=== PATIENT | female | born 1970 | race Caucasian/White ===

== ENCOUNTER 2024-12-27 08:53 | Inpatient (IN) | payer OTHER ==
[2024-12-27 10:25] LABS: BASOPHILS ABSOLUTE AUTO 0.1 K/mm3 (0.0-0.2); BASOPHILS PERCENT AUTO 0.9 % (0.0-1.0); EOSINOPHILS ABSOLUTE AUTO 0.3 K/mm3 (0.0-0.4); EOSINOPHILS PERCENT AUTO 2.3 % (0.0-6.0); HEMATOCRIT 33.4 % (37.0-47.0); HEMOGLOBIN 11.6 gm/dl (12.0-16.0); IMMATURE GRAN ABSOLUTE AUTO 0.94 K/mm3 (0.00-0.05); IMMATURE GRAN PERCENT AUTO 6.7 % (0.0-0.4); LYMPHOCYTES ABSOLUTE AUTO 1.1 K/mm3 (1.0-4.8); LYMPHOCYTES PERCENT AUTO 8.2 % (24.0-44.0); MEAN CORPUSCULAR HEMOGLOBIN 29.7 pg (28.0-32.0); MEAN CORPUSCULAR HGB CONC 34.7 g/dl (32.0-36.0); MEAN CORPUSCULAR VOLUME 85.6 fl (83.0-99.0); MEAN PLATELET VOLUME 10.6 fl (9.4-12.3); MONOCYTES PERCENT AUTO 7.3 % (0.0-8.0); NEUTROPHILS ABSOLUTE AUTO 10.4 K/mm3 (1.8-7.7); NRBC ABSOLUTE 0.02 (0.00-0.02); NRBC PERCENT 0.1 % (0.0-0.2); PLATELET COUNT,PLT 299 K/mm3 (150-400); WHITE BLOOD CELL COUNT,WBC 13.95 K/mm3 (3.9-11.3)
[2024-12-27 10:40] LABS: A/G RATIO 0.5 (1-2); ALBUMIN 2.3 g/dl (3.4-5.0); ANION GAP 14.5 (5-15); BILIRUBIN TOTAL 0.8 mg/dL (0.2-1.0); BUN/CREATININE RATIO 16.4 (14-18); CALCIUM 9.1 mg/dL (8.5-10.1); CREATININE 1.1 mg/dL (0.55-1.02); EST CRCL DRUG DOSING (CG) 49.49 mL/min; POTASSIUM,K 3.5 mEq/L (3.5-5.1); PROTEIN TOTAL,TP 6.6 g/dl (6.4-8.2)
[2024-12-27 11:01] LABS: CORONAVIRUS COVID-19 NAA NEGATIVE (NEGATIVE); INFLUENZA A NAA NEGATIVE (NEGATIVE); RESPIRATORY SYNCYTIAL VIR NAA NEGATIVE (NEGATIVE)
[2024-12-27 11:52] LABS: NEUTROPHILS PERCENT AUTO 74.6 % (41.0-71.0); SLIDE REVIEW ABNORMAL SMEAR
[2024-12-27] MEDS ORDERED: Acetaminophen 325 MG Tab PO PRN (12:20)
[2024-12-27 12:26] LABS: INR 1.07; PROTHROMBIN TIME 11.3 SECONDS (9.7-12.0)
[2024-12-27 12:27] LABS: PTT,PARTIAL THROMBOPLSTIN TIME 24.5 SECONDS (21.7-31.4)
[2024-12-27] MEDS: Sodium Chloride 0.9% 1,000 ML IV ONE (12:33)
[2024-12-27] MEDS: Cefepime 2 GM Vial IVPUSH ONE (12:33)
[2024-12-27] MEDS: Azithromycin 250 MG Tab PO ONE (12:34)
[2024-12-27 12:35] LABS: LACTIC ACID 1.2 mmol/L (0.4-2.0)
[2024-12-27] MEDS: Topiramate 25 MG Tab PO SCH (21:22)
[2024-12-28 05:31] LABS: BASOPHILS ABSOLUTE AUTO 0.1 K/mm3 (0.0-0.2); BASOPHILS PERCENT AUTO 0.9 % (0.0-1.0); EOSINOPHILS ABSOLUTE AUTO 0.4 K/mm3 (0.0-0.4); EOSINOPHILS PERCENT AUTO 3.9 % (0.0-6.0); HEMATOCRIT 32.4 % (37.0-47.0); HEMOGLOBIN 11.1 gm/dl (12.0-16.0); IMMATURE GRAN ABSOLUTE AUTO 0.86 K/mm3 (0.00-0.05); IMMATURE GRAN PERCENT AUTO 8.1 % (0.0-0.4); LYMPHOCYTES ABSOLUTE AUTO 1.4 K/mm3 (1.0-4.8); LYMPHOCYTES PERCENT AUTO 13.5 % (24.0-44.0); MEAN CORPUSCULAR HEMOGLOBIN 29.8 pg (28.0-32.0); MEAN CORPUSCULAR HGB CONC 34.3 g/dl (32.0-36.0); MEAN CORPUSCULAR VOLUME 87.1 fl (83.0-99.0); MEAN PLATELET VOLUME 10.1 fl (9.4-12.3); MONOCYTES ABSOLUTE AUTO 0.7 K/mm3 (0.0-0.8); MONOCYTES PERCENT AUTO 6.8 % (0.0-8.0); NEUTROPHILS ABSOLUTE AUTO 7.1 K/mm3 (1.8-7.7); NEUTROPHILS PERCENT AUTO 66.8 % (41.0-71.0); PLATELET COUNT,PLT 271 K/mm3 (150-400); RED BLOOD CELL COUNT 3.72 M/mm3 (4.10-5.30); WHITE BLOOD CELL COUNT,WBC 10.57 K/mm3 (3.9-11.3)
[2024-12-28 05:46] LABS: A/G RATIO 0.6 (1-2); ALBUMIN 2.2 g/dl (3.4-5.0); ANION GAP 11.6 (5-15); BILIRUBIN TOTAL 0.7 mg/dL (0.2-1.0); BUN/CREATININE RATIO 17.3 (14-18); C-REACTIVE PROTEIN 8.04 mg/dL (<0.30); CALCIUM 8.8 mg/dL (8.5-10.1); CREATININE 1.1 mg/dL (0.55-1.02); EST CRCL DRUG DOSING (CG) 49.49 mL/min; POTASSIUM,K 3.6 mEq/L (3.5-5.1); PROTEIN TOTAL,TP 6.1 g/dl (6.4-8.2)
[2024-12-28] MEDS: Pantoprazole 40 MG Tab.CR PO SCH (06:10)
[2024-12-28 06:17] LABS: SLIDE REVIEW ABNORMAL SMEAR
[2024-12-28] MEDS: Clopidogrel 75 MG Tab PO SCH (08:49)
[2024-12-28] MEDS: Saccharomyces Boulardii (Probiotic) 250 MG Cap PO SCH (08:49)
[2024-12-28] MEDS: Allopurinol 100 MG Tab PO SCH (08:49)
[2024-12-28] MEDS: NIFEdipine 10 MG Cap PO SCH (08:49)
[2024-12-28] MEDS: Enoxaparin 40 MG/0.4 ML Syringe SUBCUT SCH (08:50)
[2024-12-28] MEDS ORDERED: ESOMEPRAZOLE 40 MG PO SCH (09:00)
[2024-12-28] MEDS: Cefepime 2 GM Vial IVPUSH SCH (12:25)
[2024-12-28] MEDS: Azithromycin 500 MG in Sodium Chloride 0.9% 250 ML IV SCH (12:25)
[2024-12-29 05:40] LABS: BASOPHILS ABSOLUTE AUTO 0.1 K/mm3 (0.0-0.2); BASOPHILS PERCENT AUTO 1.2 % (0.0-1.0); EOSINOPHILS ABSOLUTE AUTO 0.4 K/mm3 (0.0-0.4); EOSINOPHILS PERCENT AUTO 4.2 % (0.0-6.0); HEMATOCRIT 32.3 % (37.0-47.0); HEMOGLOBIN 11.1 gm/dl (12.0-16.0); IMMATURE GRAN ABSOLUTE AUTO 0.86 K/mm3 (0.00-0.05); IMMATURE GRAN PERCENT AUTO 9.5 % (0.0-0.4); LYMPHOCYTES ABSOLUTE AUTO 1.3 K/mm3 (1.0-4.8); LYMPHOCYTES PERCENT AUTO 14.6 % (24.0-44.0); MEAN CORPUSCULAR HEMOGLOBIN 29.3 pg (28.0-32.0); MEAN CORPUSCULAR HGB CONC 34.4 g/dl (32.0-36.0); MEAN CORPUSCULAR VOLUME 85.2 fl (83.0-99.0); MEAN PLATELET VOLUME 10.1 fl (9.4-12.3); MONOCYTES ABSOLUTE AUTO 0.6 K/mm3 (0.0-0.8); NEUTROPHILS ABSOLUTE AUTO 5.7 K/mm3 (1.8-7.7); NEUTROPHILS PERCENT AUTO 63.5 % (41.0-71.0); PLATELET COUNT,PLT 288 K/mm3 (150-400); RED BLOOD CELL COUNT 3.79 M/mm3 (4.10-5.30); WHITE BLOOD CELL COUNT,WBC 9.02 K/mm3 (3.9-11.3)
[2024-12-29 06:12] LABS: A/G RATIO 0.6 (1-2); ALBUMIN 2.2 g/dl (3.4-5.0); ANION GAP 12.8 (5-15); BILIRUBIN TOTAL 0.6 mg/dL (0.2-1.0); BUN/CREATININE RATIO 17.8 (14-18); C-REACTIVE PROTEIN 4.54 mg/dL (<0.30); CREATININE 0.9 mg/dL (0.55-1.02); EST CRCL DRUG DOSING (CG) 60.49 mL/min; POTASSIUM,K 3.8 mEq/L (3.5-5.1)
[2024-12-29 06:20] LABS: SLIDE REVIEW ABNORMAL SMEAR
[2024-12-30 08:47] LABS: QNTIFERON MITOGEN MIN NIL 3.15 IU/mL; QNTIFERON NIL 0.01 IU/mL; QNTIFERON TB GOLD PLUS Negative (Negative)
== END 2024-12-29 14:08 | disposition home or self-care (01) | DRG 193 ==
LOC: JD.ED 08:53 → JD.MS 12:20
PROVIDERS: ADMIT Family Medicine; ATTEND Student in an Organized Health Care Education/Training Program
DX: J18.9 Pneumonia, unspecified organism (principal); J96.01 Acute respiratory failure with hypoxia; M34.81 Systemic sclerosis with lung involvement; I10 Essential (primary) hypertension; K21.9 Gastro-esophageal reflux disease without esophagitis; M19.90 Unspecified osteoarthritis, unspecified site; I73.00 Raynaud's syndrome without gangrene; H54.7 Unspecified visual loss; Z90.710 Acquired absence of both cervix and uterus; Z79.899 Other long term (current) drug therapy; Z88.8 Allergy status to other drugs, medicaments and biological substances
CPT/HCPCS: 0241U; 36415; 71045; 71045-26; 80053; 83605; 85025; 85610; 85652; 85730; 86140; 86480; 86606; 86612; 86635; 86698; 86738; 87040; 87070; 87102; 87205; 87899; 94667; 94668; 94760; 94761; 96361; 96374; 99285; 99285-25; A9270-GY; J0456; J0692; J1650; J7030

== ENCOUNTER 2025-01-27 07:37 | Day surgery (SDC) | payer OTHER ==
[~2025-01-27 07:37] MED LIST: Sodium Chloride 0.9% 10 ML Syringe FLUSH PRN; Sodium Chloride 0.9% 10 ML Syringe FLUSH SCH
[2025-01-27] MEDS ORDERED: Midazolam 1 MG/ML 2 ML SDV ONE (08:25)
[2025-01-27] MEDS ORDERED: Lidocaine 1% 4 ML ONE (08:25)
[2025-01-27] MEDS ORDERED: propofoL 500 MG/50 ML 50 ML ONE (08:25)
[2025-01-27] MEDS ORDERED: Benzocaine 20% Oral Spray 59.2 ML Canister MUCMEM PRN (08:32)
[2025-01-27] MEDS: Lactated Ringers 1,000 ML IV SCH (08:40)
[2025-01-27] MEDS: Albuterol/Ipratropium 3.0-0.5 MG/3 ML Neb Soln ONE (09:10)
[2025-01-27] MEDS: Lidocaine 1% 20 ML MDV ONE (09:29)
== END 2025-01-27 10:55 | disposition home or self-care (01) ==
LOC: JD.SDS 07:37
PROVIDERS: ATTEND Surgery
DX: J18.9 Pneumonia, unspecified organism (principal); K21.9 Gastro-esophageal reflux disease without esophagitis; I10 Essential (primary) hypertension; E78.5 Hyperlipidemia, unspecified; Z79.899 Other long term (current) drug therapy; Z88.5 Allergy status to narcotic agent; Z91.030 Bee allergy status; Z91.011 Allergy to milk products
CPT/HCPCS: 31622; J2003; J2250; J2704; J7120; J7620; 00520; A9270-GY; J3490